=== PATIENT | female | born 1960 | race Caucasian/White ===

== ENCOUNTER 2021-09-26 01:10 | Outpatient (CLI) | payer BC, SELFPAY ==
[2021-09-26 10:31] LABS: Source Nasal/Nares
[2021-09-26 14:22] LABS: COVID-19 PCR Negative (Negative)
== END 2021-09-26 01:11 | disposition home or self-care (01) ==
LOC: LBO 01:10
PROVIDERS: Visit Provider Student in an Organized Health Care Education/Training Program
DX: Z20.822 Contact with and (suspected) exposure to COVID-19 (principal); Z01.818 Encounter for other preprocedural examination
CPT/HCPCS: 87635

== ENCOUNTER 2021-09-28 10:57 | Day surgery (SDC) | payer BC, SELFPAY ==
[2021-09-28] VITALS (9 sets, daily range): BP systolic 92–123; BP diastolic 55–96; PULSE 56–96; RESP 11–18; TEMP 36.2–36.6; O2SAT 94–98; BMI 41.6
[2021-09-28] MEDS: Acetaminophen 500 MG TAB 1000 MG PO (11:26)
[2021-09-28] MEDS: Celecoxib 200 MG CAP 400 MG PO (11:26)
[2021-09-28] MEDS: Lactated Ringers 1,000 ML 80 ML IV (11:36)
--- NOTE | 2021-09-28 12:08 | PDOC.DSDIS_ITS ---
Discharge Plan Disposition Patient Disposition: HOME Condition: Good Discharge Details Reason For Visit: Hemorrhagic prepatellar bursitis of right knee Attending Provider: Jean-Claude Mendes Home Meds and New Rx's Prescriptions: New acetaminophen 500 mg tablet 1,000 mg PO Q8H PRN Qty: 90 0RF Rx Instructions: Take two tablets up to every 8 hours as needed for pain hydrocodone-acetaminophen 5-325 mg tablet 1 tab PO Q6H PRN (Reason: severe pain) Qty: 6 0RF Rx Instructions: Take one tablet up to every 6 hours as needed for severe postoperative pain ibuprofen 600 mg tablet 600 mg PO TID PRN (Reason: pain) Qty: 60 0RF Continued lisinopril 20 mg tablet 20 mg PO DAILY 0RF Discharge Instructions Additional Instructions: Bursa Excision Discharge Instructions Activity: You may ambulate as tolerated. You may move your knee, ankle and toes as needed. Dressing: The dressing against your skin, Mepilex, should stay in place until your follow-up appointment. Please keep MICHAEL wrap in place - if it unravels you may re-wrap. you should call and notify the office. You may rewrap or overwrap until the follow-up. Medications: - You should take Tylenol and Ibuprofen around the clock for the first days- weeks. This will cover baseline pain control. - You have been prescribed a stronger medication, Hydrocodone, if needed. If this is necessary, and you need a refill, please call the office at [phone]. Stand Alone Forms: Anesthesia Discharge InstCourtney Ortiz (DSU) Referrals: Jean-Claude Mendes MD [ [facility] STAFF PHYSICIAN] - Activity:: Elevate Remove Dressings/Wound Care:: Do Not Remove Shower/Bathe:: Cover Diet:: As Tolerated Discharge Orders Discharge Orders: Discharge Order (Routine); Ordered 09/28/21 Ordered By: Libby Graham
--- NOTE | 2021-09-28 12:19 | W.ANESPRE ---
General Info Date of Service Date Performed: 09/28/21 Height: 5 ft 6 in Weight: 117 kg Body Mass Index (BMI): 41.6 Surgical Procedure: Operation Date: 09/28/21 12:40 Proposed Procedure Side Surgeon p Excision Prepatellar Bursectomy Right Jean-Claude Mendes MD Actual Procedure Side Surgeon p Excision Prepatellar Bursectomy Right Jean-Claude Mendes MD Meds Allergies and Home Medications Allergies Allergy/AdvReac Type Severity Reaction Status Date / Time No Known Allergies Allergy Verified 09/28/21 11:23 Home Medication Medication Instructions Recorded lisinopril 20 mg tablet 20 mg PO DAILY 07/13/21 acetaminophen 500 mg tablet 1,000 mg PO Q8H PRN #90 tab 09/28/21 hydrocodone 5 mg-acetaminophen 325 1 tab PO Q6H PRN #6 tab 09/28/21 mg tablet ibuprofen 600 mg tablet 600 mg PO TID PRN #60 tab 09/28/21 Current Visit Medications: Current Medications Generic Name Dose Route Start Last Admin Trade Name Freq PRN Reason Stop Dose Admin Acetaminophen 1,000 mg 09/28/21 06:00 09/28/21 11:26 Acetaminophen 500 Mg Tab PO 09/28/21 16:00 1,000 mg PREOP AMANDA Administration Acetaminophen 650 mg 09/28/21 12:07 Acetaminophen 325 Mg Tab PO Q4H PRN PRN Hydrocodone Bitart/Acetaminophen 0 tab 09/28/21 12:07 Hydrocodone 5/Acetaminophen 325 Tab PO Q3H PRN PRN Pain Celecoxib 400 mg 09/28/21 06:00 09/28/21 11:26 Celecoxib 200 Mg Cap PO 09/28/21 16:00 400 mg PREOP AMANDA Administration Ringer's Solution 1,000 mls @ 80 mls/hr 09/28/21 06:00 09/28/21 11:36 IV 10/23/21 23:59 80 mls/hr INFUSION AMANDA Administration Cefazolin Sodium 3 gm in 100 mls @ 200 mls/hr 09/28/21 06:00 Ancef Premix IVPB 09/28/21 16:00 PREOP AMANDA IV Miscellaneous Supplies 1 each 09/28/21 06:00 Iv Access IV 10/23/21 23:59 DIRECTED AMANDA Sodium Chloride 0 ml 09/28/21 06:00 Normal Saline Flush 10 Ml Syr IV 10/23/21 23:59 PRN PRN Sodium Chloride 0 ml 09/28/21 06:00 Normal Saline 10 Ml Vial IJ 10/23/21 23:59 DIRECTED PRN Sterile Water 0 ml 09/28/21 06:00 Water,Injection,Sterile 10 Ml Vial IJ 10/23/21 23:59 DIRECTED PRN PFSH Active Problems Active Problems: Problem Status Onset Code Osteoarthritis of right knee M17.11 Hemorrhagic prepatellar bursitis of right knee M70.41 Medical History Medical History HTN (hypertension) Melanoma Medical History Comments:: pt. stated it took her longer than normal to wake up Surgical History Surgical History (Updated 09/28/21 @ 11:25 by Mary Jo Matthews RN) Hx of melanoma excision Tobacco Smoking/Tobacco Use Status: Never Alcohol Alcohol Intake: never Substance Use Substance use: Never Substance use type: does not use Vital Signs and Lab Results Vital Signs Most Recent Vital Signs in EMR: Most Recent Vital Signs Temp Pulse Resp BP Pulse Ox 36.5 C 96 H 17 122/83 97 09/28/21 11:09 09/28/21 11:09 09/28/21 11:09 09/28/21 11:09 09/28/21 11:09 Lab Results Blood Type / Crossmatch: No Data to Display Complete Blood Count: No Data to Display Complete Metabolic Panel: No Data to Display Liver Function Panel: No Data to Display Coagulation Panel: No Data to Display Cardiac Panel: No Data to Display Arterial Blood Gas: No Data to Display Venous Blood Gas: No Data to Display Pancreas Panel: No Data to Display Thyroid Panel: No Data to Display Infectious Disease: Coronavirus (COVID-19)(PCR) Negative (Negative) 09/26/21 09:12 09/26/21 Coronavirus 2019 Source Nasal/Nares 09/26/21 09:12 09/26/21 Blood Cultures: No Data to Display Toxicology Panel: No Data to Display Anesthesia Assessment and Plan Anesthesia History Personal History: No History of Anesthesia Complications Family History: No Family History of Anesthesia Complications Exercise Tolerance Exercise Tolerance: Metabolic Equivalents>4 Pertinent Negatives Pertinent Negatives: No Symptoms of GERD, No Major Cardiovascular Symptoms or Complaints, No Major Pulmonary Symptoms or Complaints and No History of CVA/TIA Cardiac & Pulmonary Exam Cardiac Exam: Normal S1/S2 Heart Sounds Pulmonary Exam: Clear Bilateral Breath Sounds Implantable Cardiac Device Does patient have a Pacemaker or an ICD?: No Airway Exam Known Difficult Airway: No Mallampati Class: 2 Mouth Opening: Normal (> 3cm) Thyromental Distance: Greater than 3 cm Neck Range of Motion: Full ROM Neck Circumference: Normal Teeth Condition: Normal Dentition ASA Classification ASA Score: ASA 3 Emergency Case?: No NPO Status NPO Status: NPO Clears >2 hours, Solids >8 hours Anesthesia Plan Resuscitation Status: Full Code Anesthesia Technique: General Anesthesia Airway Planned: LMA Pain Management: Surgeon and patient request nerve block (Consented for rescue Adductor canal ) Monitors Used: Standard Monitors
[2021-09-28] MEDS: Bupivacaine 0.25% Pres-Free 10 ML VIAL (12:47)
[2021-09-28] MEDS: Ketorolac 15 MG/ML VIAL IVP (13:53)
[2021-09-28] MEDS: Normal Saline Flush 10 ML SYR IV (13:54)
[2021-09-28] MEDS: HYDROmorphone 2 MG/ML VIAL IVP (14:07)
[2021-09-28] MEDS: Acetaminophen 325 MG TAB 650 MG PO (14:39)
--- NOTE | 2021-09-28 14:53 | W.ANESPOSTOP ---
Postoperative Evaluation Date, Time and Location Date Performed: 09/28/21 Time Performed: 14:24 Patient Location: Day Surgery Unit Vital Signs Most Recent Imported Vital Signs: Most Recent Vital Signs Temp Pulse Resp BP Pulse Ox 36.2 C L 66 17 116/96 H 94 09/28/21 14:24 09/28/21 14:24 09/28/21 14:24 09/28/21 14:24 09/28/21 14:24 Pain Score Most Recent Pain Score: Most Recent Pain Score Pain Level 4 09/28/21 14:24 Assessment Mental Status: Awake (Alert & Oriented to Patient Baseline) Airway and Respiratory Function: Patent airway with normal (patient baseline) respiratory exam Cardiovascular Function: Hemodynamically Stable Hydration Status: Adequately Hydrated Nausea & Vomiting: No Nausea or Vomiting Pain: Pain is tolerable per patient Peripheral Nerve Block: Patient did not receive a nerve block
--- NOTE | 2021-09-28 20:43 | ROE_ITS ---
Date of service: 09/28/21 Time of Service: 13:15 Operative Note Operative Note DATE OF PROCEDURE: 09/28/21 PRE-OP DIAGNOSIS: Right Traumatic Prepatellar Bursitis PROCEDURE: Excision of Right Prepatellar Bursa with Hematoma Evacuation SURGEON: Jean-Claude Mendes [employer]IOR [employer] DEVELOPER: Libby Graham ANESTHESIA TYPE: General LMA/ETT Refer to Anesthesia Record ESTIMATED BLOOD LOSS: 25 TOURNIQUET TIME: 0 COMPLICATIONS: None Patient was transported to: PACU Patient's condition: stable Indications: Vee is a 61-year-old who had a fall onto her right knee. She had immediate swelling and pain. She tried to treat this nonoperatively but continues to have fullness and swelling about the anterior knee which is presumed to be coagulated hematoma. It is caused pressure to the skin difficulty with flexion and therefore I recommended a prepatellar bursectomy with evacuation of the hematoma. I discussed the risk of the procedure to include bleeding, infection, pain, stiffness, recurrence, skin healing difficulties, need for repeat procedures. Despite these risk, she elects to proceed. Findings: There was a large congealed hematoma in the prepatellar space with only a very small amount of liquid component. This hematoma extended throughout the entire prepatellar bursa. It was evacuated and the bursa was also removed. Procedure Description: Vee was greeted in the preoperative holding area. Her identity was confirmed the correct side was identified and marked. The consent was reviewed the patient and signed. History and physical was updated. Jenn was then taken to the operating room and placed in the supine position. All bony prominences were well-padded. A general anesthetic was administered. Prophylactic antibiotics in the form of cefazolin were administered. The right leg was prepped ChloraPrep and draped in the standard fashion. Timeouts performed for safe surgery. A midline incision was then made overlying the anterior portion of the knee. Once to the skin subtenons tissue there is an immediate guevara of liquid blood type material. After this was removed discontinuation of the incision showed a dense congealed hematoma in the prepatellar space. This was removed manually as well as with the use of a rongeur. Once the bulk of this hematoma was removed there is noted be some hemorrhagic and necrotic changes to the rectal tissue. Using a rongeur as well as cautery and a Tate to remove the bursal tissue in its entirety. Thorough irrigation was utilized along this process to ensure that we have removed all necessary components of the bursa. I did make sure to try to minimize any thinning of the subcutaneous tissue underlying the anterior skin. Any major bleeding was controlled with electrocautery. Once again, the wound was thoroughly irrigated and there is no remnant hematoma nor necrotic appearing bursal tissue. The deep tissue was then reapproximated with a 3-0 Vicryl. The skin was closed with a running 4-0 Monocryl subcuticular fashion. There is then reinforced with skin affix skin glue followed by Mepilex silver dressing. A pressure type dressing was applied with folded ABDs and Rober wrap overlying the anterior knee to provide some compression against the now evacuated hematoma space. At the end of the case all counts were correct. There was no complications. Vee was transferred back to the PACU in a stable condition.
== END 2021-09-28 15:10 | disposition home or self-care (01) ==
PROVIDERS: Visit Provider Student in an Organized Health Care Education/Training Program
PROC: (CPT 27345; principal; 2021-09-28 12:30)
DX: S80.01XA Contusion of right knee, initial encounter (principal); W19.XXXA Unspecified fall, initial encounter; M70.41 Prepatellar bursitis, right knee; M17.11 Unilateral primary osteoarthritis, right knee; I10 Essential (primary) hypertension
CPT/HCPCS: 27340; 27301; J1100; J1885; J2405; J3010

== ENCOUNTER 2023-06-16 15:44 | Outpatient (CLI) | payer MEDICAID, SELFPAY ==
--- NOTE | 2023-06-16 10:30 | DI.RAD_ITS ---
Exam(s) XR STANDING ALIGNMENT XR KNEE RT 1V EXAM: XR STANDING ALIGNMENT and XR knee RT 1 V CLINICAL HISTORY: TKR planning. TECHNIQUE: 2D digital imaging was performed. Five images were obtained. COMPARISON: DX Knee RT from 07/05/2021 FINDINGS: BONES: Mild axial narrowing of the hips bilaterally. Marked degenerative changes are seen in the rig ht knee with joint space narrowing and osteophytes predominantly involving the medial femoral tibial and patellofemoral joint. No evidence of a joint effusion in the right knee. There is moderate join t space narrowing and spurring seen in the medial femoral tibial joint of the left knee. The ankles are well maintained.There is no significant leg length discrepancy. SOFT TISSUE: Normal. IMPRESSION: Marked arthrosis of the right knee and moderate arthrosis of the left knee. DATA REPOSITORY: RADIATION DOSE DELIVERED:
== END 2023-06-16 15:45 | disposition home or self-care (01) ==
LOC: DIORS 15:44
PROVIDERS: PCP Nurse Practitioner Primary Care; Visit Provider Physician Assistant
DX: M17.12 Unilateral primary osteoarthritis, left knee (principal)
CPT/HCPCS: 73560; 77073

== ENCOUNTER 2023-08-11 05:24 | Outpatient (CLI) | payer MEDICAID, SELFPAY ==
[2023-08-11 12:07] LABS: HCT 44.6 % (36.0-46.0); HGB 14.4 g/dL (11.2-15.7); MCH 28.8 pg (27.0-33.0); MCHC 32.3 % (32.0-36.0); MCV 89 fL (80-95); MPV 9.6 fL (8.0-11.0); Platelet Count 365 10^3/uL (130-400); RDW 13.6 % (11.7-14.6); RDW-SD 44.3 fL; WBC 9.68 10^3/uL (4.4-10.8)
[2023-08-11 12:37] LABS: BUN 12 mg/dL (7-18); CREATININE 0.8 mg/dL (0.55-1.02); Calcium 9.6 mg/dL (8.5-10.1); Chloride 105 mmol/L (98-107); Estimated GFR 82.23 (mL/min/1.73m2); Glucose 106 mg/dL (74-106); Potassium 4.1 mmol/L (3.5-5.1); Sodium 142 mmol/L (136-145)
== END 2023-08-11 05:25 | disposition home or self-care (01) ==
LOC: LBO 05:24
PROVIDERS: PCP Nurse Practitioner Primary Care; Visit Provider Student in an Organized Health Care Education/Training Program
DX: M17.11 Unilateral primary osteoarthritis, right knee (principal); Z01.818 Encounter for other preprocedural examination
CPT/HCPCS: 36415; 80048; 85027

== ENCOUNTER 2023-08-20 15:59 | Observation (INO) | payer MEDICAID, SELFPAY ==
[2023-08-20] VITALS (28 sets, daily range): BP systolic 111–161; BP diastolic 70–101; PULSE 60–89; RESP 13–23; TEMP 35.7–36.6; O2SAT 91–98; BMI 40.0
--- NOTE | 2023-08-20 06:41 | W.ANESPRE ---
General Info Date of Service Date Performed: 08/20/23 Height: 5 ft 6 in Weight: 112.491 kg Body Mass Index (BMI): 40.0 Surgical Procedure: Operation Date: 08/20/23 09:10 Proposed Procedure Side Surgeon p Knee Total Arthroplasty Right Jean-Claude Mendes MD Meds Allergies and Home Medications Allergies Allergy/AdvReac Type Severity Reaction Status Date / Time No Known Allergies Allergy Verified 08/20/23 08:41 Home Medication Medication Instructions Recorded lisinopril 20 mg tablet 20 mg PO DAILY 07/13/21 acetaminophen 500 mg tablet 1,000 mg (2 x 500 mg) PO TID #90 08/20/23 tabs aspirin 81 mg tablet,delayed 81 mg PO BID #60 tabs 08/20/23 release celecoxib 200 mg capsule 200 mg PO BID #60 caps 08/20/23 dexamethasone 4 mg tablet 4 mg PO DAILY #2 tabs 08/20/23 gabapentin 300 mg capsule 300 mg PO QHS #14 caps 08/20/23 oxycodone 5 mg tablet 5 mg PO Q4H PRN pain #20 tabs 08/20/23 pantoprazole 40 mg tablet,delayed 40 mg PO DAILY #30 tabs 08/20/23 release Current Visit Medications: Current Medications Generic Name Dose Route Start Last Admin Trade Name Freq PRN Reason Stop Dose Admin Acetaminophen 1,000 mg 08/21/23 06:00 Acetaminophen 500 Mg Tab PO 09/20/23 05:59 PREOP AMANDA Celecoxib 400 mg 08/21/23 06:00 Celecoxib 200 Mg Cap PO 09/20/23 05:59 PREOP AMANDA Gabapentin 300 mg 08/21/23 06:00 Gabapentin 300 Mg Cap PO 09/20/23 05:59 PREOP AMANDA Ringer's Solution 1,000 mls @ 80 mls/hr 08/20/23 06:00 IV 08/20/23 23:59 INFUSION AMANDA Cefazolin Sodium 3,000 mg/ 100 mls @ 200 mls/hr 08/20/23 06:00 Sodium Chloride IVPB 08/20/23 23:59 PREOP AMANDA Tranexamic Acid/Sodium Chloride 1,000 mg in 100 mls @ 600 mls/hr 08/21/23 06:00 IVPB 09/20/23 05:59 PREOP AMANDA IV Miscellaneous Supplies 1 each 08/20/23 06:00 Iv Access IV 08/20/23 23:59 DIRECTED AMANDA Sodium Chloride 0 ml 08/20/23 06:00 Normal Saline Flush 10 Ml Syr IV 08/20/23 23:59 PRN PRN Sodium Chloride 0 ml 08/20/23 06:00 Normal Saline 10 Ml Vial IJ 08/20/23 23:59 DIRECTED PRN Sterile Water 0 ml 08/20/23 06:00 Water,Injection,Sterile 10 Ml Vial IJ 08/20/23 23:59 DIRECTED PRN PFSH Active Problems Active Problems: Problem Status Onset Code Osteoarthritis of right knee M17.11 Medical History Medical History Melanoma HTN (hypertension) Medical History Comments:: pt. stated it took her longer than normal to wake up Surgical History Surgical History Hemorrhagic prepatellar bursitis of right knee Status postevacuation of hematoma DOS: 09/28/2021 Hx of melanoma excision Tobacco Smoking/Tobacco Use Status: Never Alcohol Alcohol Intake: never Substance Use Substance use: Never Substance use type: does not use Vital Signs and Lab Results Vital Signs Most Recent Vital Signs in EMR: Temp Pulse Resp BP Pulse Ox 36.5 C 82 16 130/95 H 96 08/20/23 08:38 08/20/23 08:38 08/20/23 08:38 08/20/23 08:38 08/20/23 08:38 Lab Results Blood Type / Crossmatch: No Data to Display Complete Blood Count: White Blood Count 9.68 10^3/uL (4.4-10.8) 08/11/23 11:40 Red Blood Count 5.00 10^6/uL (3.93-5.22) 08/11/23 11:40 Hemoglobin 14.4 g/dL (11.2-15.7) 08/11/23 11:40 Hematocrit 44.6 % (36.0-46.0) 08/11/23 11:40 Platelet Count 365 10^3/uL (130-400) 08/11/23 11:40 Complete Metabolic Panel: Sodium 142 mmol/L (136-145) 08/11/23 11:40 Potassium 4.1 mmol/L (3.5-5.1) 08/11/23 11:40 Chloride 105 mmol/L (98-107) 08/11/23 11:40 Carbon Dioxide 28.0 mmol/L (21.0-32.0) 08/11/23 11:40 BUN 12 mg/dL (7-18) 08/11/23 11:40 Creatinine 0.8 mg/dL (0.55-1.02) 08/11/23 11:40 Est GFR (CKD-EPI 2020) 82.23 (mL/min/1.73m2) 08/11/23 11:40 Calcium 9.6 mg/dL (8.5-10.1) 08/11/23 11:40 Glucose 106 mg/dL (74-106) 08/11/23 11:40 Liver Function Panel: No Data to Display Coagulation Panel: No Data to Display Cardiac Panel: No Data to Display Arterial Blood Gas: No Data to Display Venous Blood Gas: No Data to Display Pancreas Panel: No Data to Display Thyroid Panel: No Data to Display Infectious Disease: No Data to Display Blood Cultures: No Data to Display Toxicology Panel: No Data to Display Anesthesia Assessment and Plan Anesthesia History Personal History: No History of Anesthesia Complications Family History: No Family History of Anesthesia Complications Exercise Tolerance Exercise Tolerance: Metabolic Equivalents>4 Pertinent Negatives Pertinent Negatives: No Symptoms of GERD, No Major Pulmonary Symptoms or Complaints and No History of CVA/TIA Cardiac & Pulmonary Exam Cardiac Exam: Normal S1/S2 Heart Sounds Pulmonary Exam: Clear Bilateral Breath Sounds Implantable Cardiac Device Does patient have a Pacemaker or an ICD?: No Airway Exam Known Difficult Airway: No Mallampati Class: 2 Mouth Opening: Normal (> 3cm) Thyromental Distance: Greater than 3 cm Neck Range of Motion: Full ROM Neck Circumference: Normal Teeth Condition: Normal Dentition ASA Classification ASA Score: ASA 3 Emergency Case?: No NPO Status NPO Status: NPO Clears >2 hours, Solids >8 hours Anesthesia Plan Resuscitation Status: Full Code Anesthesia Technique: Spinal Anesthesia Airway Planned: Natural Airway Pain Management: Surgeon and patient request nerve block Monitors Used: Standard Monitors Preoperative Comments:: 63 yo female for TKA. Sig PMHx: HTN (lisinopril), never smoker. denies major. Previous Anes: - Knee cyst, LMA 4, prop, dexmed, no issues.
--- NOTE | 2023-08-20 07:21 | PDOC.DSDIS_ITS ---
Date of service: 08/20/23 Time of Service: 07:21 Discharge Plan Disposition Patient Disposition: Home Condition: Good Discharge Details Reason For Visit: R TKR Attending Provider: Jean-Claude Mendes Primary Care Provider: KIRK FARRELL Home Meds and New Rx's Prescriptions: New celecoxib 200 mg capsule 200 mg PO BID Qty: 60 0RF aspirin 81 mg tablet,delayed release (DR/EC) 81 mg PO BID Qty: 60 0RF acetaminophen 500 mg tablet 1,000 mg PO TID Qty: 90 3RF pantoprazole 40 mg tablet,delayed release (DR/EC) 40 mg PO DAILY Qty: 30 0RF dexamethasone 4 mg tablet 4 mg PO DAILY Qty: 2 0RF gabapentin 300 mg capsule 300 mg PO QHS Qty: 14 0RF oxycodone 5 mg tablet 5 mg PO Q4H MDD 6 tabs PRN (Reason: pain) Qty: 20 0RF Continued lisinopril 20 mg tablet 20 mg PO DAILY Discharge Instructions Additional Instructions: Total Knee Discharge Instructions Activity: The most important activity is to walk and to work on gentle motion (both flexion and extension). You should try to take short walks a few times a day. It is important that when resting you work on keeping the knee straight. Avoid putting a pillow behind the knee as this will encourage flexion. Work on range of motion exercises as provided by Physical Therapy. - Start outpatient physical therapy within 2 weeks. - You should wear the JESUS hose on both legs for 2 weeks. You may remove these at night. You may also use any compression sock in place of the JESUS hose. - Utilize [employer] to review exercises, see videos on exercises and obtain basic information pertaining to your surgery and your recovery. Dressing: Remove the Rober wrap by 2 days after your surgery and put on the JESUS stocking given to you from the hospital. Keep the surgical dressing (underneath the ROBER wrap) in place for at least one week. After the first week it may be removed and replaced with light gauze and tape or nothing. The wound and dressing may get wet after 3 days but avoid soaking the dressing or otherwise it will need to be changed. Many people prefer covering the dressing with cling wrap (saran wrap) to minimize it from getting soaked. If it gets wet, just pat dry. If it starts to peel off then it will need to be changed. Medications: - You should take Tylenol and anti-inflammatory Celebrex as your primary pain control medications. If the Celebrex is too expensive or not covered, please call the office for another alternative (Advil/Ibuprofen or Naproxen/Aleve) - You have been prescribed a stronger pain medication Oxycodone for breakthrough pain, take as needed as prescribed. - You have also been prescribed a stomach acid reduction agent Pantoprozole to help reduce stomach acid and reflux. - You have been prescribed Gabapentin to take at night for restlessness and nerve pain. - You will be taking Aspirin 81mg twice a day for DVT prevention unless instructed otherwise. - You have also been prescribed Decadron to take to control post-operative nausea and pain. You will start this tomorrow. - If you have constipation you should take Colace or Miralax (both [id number]). It takes most people 3-4 days to have a bowel movement. Follow-up: 2 weeks If you have any acute concerns or questions, please do not hesitate to contact the office at [phone]. You may contact Dr. Mendes with any questions after hours through the hospital at [phone] or on his cell phone at [phone]. Referrals: Jean-Claude Mendes MD [ [facility] STAFF PHYSICIAN] - Equipment/Supplies: Walker Activity:: Activity as Tolerated Shower/Bathe:: 72 hours Diet:: As Tolerated DS: Diagnosis Discharge Diagnosis (1) Osteoarthritis of right knee: Status: Acute
[2023-08-20] MEDS: Gabapentin 300 MG CAP PO ×2 (08:54→20:09)
[2023-08-20] MEDS: Acetaminophen 500 MG TAB 1000 MG PO (08:54)
[2023-08-20] MEDS: Celecoxib 200 MG CAP 400 MG PO (08:54)
[2023-08-20] MEDS: Lactated Ringers 1,000 ML 80 ML IV (09:19)
--- NOTE | 2023-08-20 09:53 | W.ANESNERVE ---
Nerve Block Single Injection Procedure Date and Time Date Performed: 08/20/23 Procedure Start: 08:36 Location Where Procedure Performed Procedure Location: Day Surgery Unit Reason Performed: Postoperative Analgesia Requesting Provider: Jean-Claude Mendes Timeout Performed Timeout Performed: Yes Monitoring Used ECG, Blood Pressure and SpO2 Sterility Sterility: Hand Hygiene, Surgical Cap, Surgical Mask, Sterile Gloves and Chlorhexidine Sedation Given During Procedure Sedation Given (Indicate Dose Given): Versed IV Dose:: 2 mg Patient Mental Status Patient Mental Status: Sedate with meaningful communication Nerve Block 1st Nerve Block: Laterality: Right Block Type: Adductor Canal Ultrasound Image Saved?: Yes Needle / Catheter Used: 100mm SonoPlex II Local Anesthetic Bolus (Indicate Dose Given): Lidocaine used for local infiltration of skin and Bupivacaine 0.25% Dose:: 10 mL Additives (Indicate Dose Given): None Ultrasound: Sterile probe cover and gel used Nerve Stimulator: Supplement to Ultrasound use and No twitch or parasthesia noted < 0.5 mA Paresthesia: None Procedure Tolerated: No Complications Procedure Outcome: Successful Performed By: Nirmal Quesada
[2023-08-20] MEDS: ceFAZolin 3,000 MG in Normal Saline 100 ML 200 MG IVPB (10:23)
[2023-08-20] MEDS: TRANEXAMIC ACID/SOD. CHL. 1,000 MG/100 ML BAG 600 MG IVPB (10:27)
--- NOTE | 2023-08-20 11:58 | W.PM.OP ---
Date of service: 08/20/23 Time of Service: 10:30 Operative Note Operative Note DATE OF PROCEDURE: 08/20/23 PRE-OP DIAGNOSIS: Right Knee Osteoarthritis POST-OP DIAGNOSIS: same PROCEDURE: Right Total Knee Replacement SURGEON: Jean-Claude Mendes FIELD ASSISTANT: Placido Penaloza ANESTHESIA TYPE: Spinal Refer to Anesthesia Record ESTIMATED BLOOD LOSS: 100 PATHOLOGY: none sent TOURNIQUET TIME: 0 COMPLICATIONS: None Patient was transported to: PACU Patient's condition: stable Implants: 1. Depuy Attune Cementless Cruciate Retaining Femoral Component, Size 5 2. Depuy Attune Cementless Fixed Bearing Tibial Component, Size 4 3. Depuy Attune 5x10 CR/FB Poly 4. Depuy Attune Patellar Component, Size 35 Indications: I have seen Vee in clinic for symptoms of knee arthritis, confirmed with radiographic findings. [NAME] has exhausted nonoperative methods and was having significant limitations in daily function and desired better function and less pain. I discussed the technical details of a knee replacement. I explained the risks of the procedure to include, but not limited to, bleeding, infection, pain, stiffness, fracture, damage to nerves and vessels, damage to muscles and tendons, loosening, need for repeat procedure, blood clot and cardiopulmonary demise. Despite these risks, [NAME] elected to proceed. Findings: There was significant signs of arthritis throughout the knee. Procedure Description: Vee was greeted in the preoperative holding area where the correct side was identified and marked. The consent was reviewed with the patient and signed. The history and physical was updated. All questions were answered. Preoperative medications were administered: Acetaminophen 1000mg, Celebrex 400mg, and Gabapentin 300mg. An adductor canal block was then administered by the anesthesia team in the DSU. Vee was taken back to the operating room. A spinal anesthestic was then administered. The patient was placed into the supine position on the operating room table. A nonsterile tourniquet was placed high onto the leg but only used for cementing. Posts were placed for positioning during the procedure. All bony prominences were well padded. Prophylactic antibiotics in the form of Cefazolin were administered. 1g of Tranxemic Acid was given intravenously within 30 minutes of incision. The right leg was then prepped with Chloraprep and draped in a standard fashion with impervious stockinette. A second prep with Chloraprep was performed prior to application of Iodine impregnated skin protection. A timeout to confirm correct identity, side and site, procedure, allergies, anesthesia, and medical concerns was performed. With the knee in some flexion, a midline incision was made overlying the knee. Full thickness skin flaps were raised once the extensor mechanism was encountered. These were raised medially and laterally. Any bleeding was controlled with electrocautery. Once the extensor mechanism was fully exposed, a medial parapatellar arthrotomy was performed in a flexed position. All bleeding from the arthrotomy and the geniculate arteries was coagulated. A medial subperiosteal peel was performed with electrocautery to the midcoronal plane. The fat pad was removed while keeping the patellar tendon protected. The anterior distal femur synovium was removed for later visualization. The ACL and PCL were resected and the anterior horn of the lateral meniscus was transected. The knee was then flexed with the patella everted. Using a step drill, and based on preoperative templating, the femoral canal was entered. This was done with a step drill without any difficulty. The intramedullary distal femoral cut guide was inserted, set to a 6 degree valgus cut and 9mm cut thickness. The distal femoral cut guide was then held in position and pinned. With the soft tissues protected, the distal cut was performed. This was passed over a few times to ensure a planar cut. I then turned attention to the tibia. The extramedullary guide was placed onto the leg. The distal aspect was slid medial to adjust for position of center of ankle and stay in line with shaft of the tibia. Approximately 3-5 degrees of posterior slope was kept in the proximal cutting guide. The center of the guide was aligned with the PCL. The stylus was used to assess cut thickness. The medial side, most involved side, was set for a 6mm cut, corresponding to 9mm laterally. This was then held in position and pinned into place with 2 additional pins and a cross pin for stability. The medial and lateral collateral ligaments were protected and the cut was performed. With this completed, it was assessed and noted to be of appropriate dimensions. The guide was removed. A spacer block was inserted and the knee was brought into extension. The 8mm spacer block provided full extension, without hyperextension and with stability of both the medial and lateral collateral ligaments was assessed. The pins from the femur and the tibia were then removed. The distal femur was then sized. The anterior stylus was placed onto the lateral ridge of the anterior femur. This indicated a size 5 femur. The external rotation of the guide was adjusted to 3 degrees to match the epicondylar axis, perpendicular to [place] line. The 4-in-1 cutting guide was the placed. The posterior medial femur cut was evaluated and appeared of good thickness. The spacer block was inserted underneath the cutting guide and stability was confirmed in 90 degrees of flexion. An yesi wing was used to confirm appropriate position of the anterior cut to avoid notching. This cutting guide was ensured to be flush on the cut surface and then pinned into place with headed pins. While protecting the soft tissues, quad tendon, and collateral ligaments, the anterior and posterior cuts were performed with a saw. The central two pins were removed and the posterior and anterior chamfers were cut next. The notch-cutting guide was placed. This was pinned to lateralize the femoral component as much as possible while keeping it flush on the cut surface. This was then pinned into position. A reciprocating saw was used to make the notch cut. A rasp smoothed the cut surfaces. The medial and lateral menisci were removed. A trial femoral component was then inserted, impacted down to the cut surfaces, and the lug holes were drilled. A provisional trial tibial component was placed and the knee was brought through range of motion. The polyethylene was trialed until there was good flexion and extension with excellent stability to the medial and lateral collaterals. The patella was tracking without thumbs. A size 10mm polyethylene component provided the best range of motion and stability with less than 2mm gapping with medial and lateral stress and full extension without significant hyperextension. The tibial cut surface was fully exposed. The tibia was then sized as a 4. The tibia had been previously marked during trialing to correspond to the center of the tibial component to help with rotation. The trial was aligned to this placido, approximately rotated to the medial 1/3rd of the tibial tubercle. The trial was pinned into place. The tibia was prepared with a reamer and a keel punch and lug holes. The knee was then brought into extension and the patella was measured as 26mm. Using the patellar clamp and cut guide, this was resected to a flat surface with at least 13mm of thickness remaining. The size 35 patella fit the best. This was oriented and then clamped into position. The lugs were drilled. The trial components were removed. The final components were opened on the back table. The periosteal and capsular tissues, especially posteriorly, around the knee were then systematically injected with a periarticular cocktail consisting of 246mg of Ropivacaine, 0.5mg of Epinephrine, 0.08mg of Clonidine, and 30mg of Ketorolac, diluted to 100cc. On the back table, with the implants opened, the cement was mixed. One batch of high viscosity cement was prepared with vacuum assistance. After the cement was ready a small amount was placed on the cut surface of the patella and the patellar button was clamped into position and held. While the cement was hardening, the cementless knee components were placed. Starting with the tibial component, the tibia was subluxed anteriorly and the lug holes of the component were lined up. The tibia was then impacted with an impactor and mallet until the tibial component was in contact with the tibia. The final polyethylene component was inserted. Then, the femoral component was inserted. The lug holes were aligned and the component was impacted into position. The knee was irrigated with Surgiphor Betadine solution. This was allowed to sit in the knee for 3 minutes and then it was irrigated out with saline. After the cement had finally cured, approximately 15min, the clamp was removed from the patella and the knee was taken through range of motion. The patella was tracking with a no-thumbs technique. The capsule was then reapproximated with a No. 1 Vicryl at multiple locations. The capsule was finally closed with a No. 2 Stratafix, barbed suture. The second dosing of 1g TXA was started. Deep tissues were then reapproximated with 0 Vicryl and 2-0 Vicryl. The skin was closed with a running 3-0 Monocryl in a subcuticular fashion. This was reinforced with skin glue. A Mepilex silver dressing was applied along with a gnsd-bu-fcped MICHAEL wrap. A CryoCuff was applied. Vee was transferred to the hospital bed without difficulty an suffering no apparent complication. Vee has a good prognosis. Physical therapy will start today and without restrictions, weight-bearing as tolerated. Aspirin 81mg BID will be used for DVT prophylaxis.
--- NOTE | 2023-08-20 12:47 | W.ANESPOSTOP ---
Postoperative Evaluation Date, Time and Location Date Performed: 08/20/23 Time Performed: 12:47 Patient Location: PACU Vital Signs Most Recent Imported Vital Signs: Most Recent Vital Signs Temp Pulse Resp BP Pulse Ox 36.5 C 70 14 116/75 96 08/20/23 12:21 08/20/23 12:31 08/20/23 12:31 08/20/23 12:31 08/20/23 12:31 Pain Score Most Recent Pain Score: Most Recent Pain Score Pain Level 0 08/20/23 12:31 Assessment Mental Status: Awake (Alert & Oriented to Patient Baseline) Airway and Respiratory Function: Patent airway with normal (patient baseline) respiratory exam Cardiovascular Function: Hemodynamically Stable Hydration Status: Adequately Hydrated Nausea & Vomiting: No Nausea or Vomiting Pain: Other (spinal still waning) Peripheral Nerve Block: Regional nerve block not resolved at time of post operative discharge
[2023-08-20] MEDS: oxyCODONE 5 MG TAB PO (13:44)
--- NOTE | 2023-08-20 14:00 | IN_ITS ---
PT Notes Visit Reasons: R TKR Physical Therapy Day Surgery Initial Evaluation Date: 08/20/2023 Referring Doctor: HI Archuleta PT Orders: PT CONSULT: S/p Ortho Surgery Precautions: WBAT on the right LE with AD. Patient Profile/Admitting Diagnosis: Vee is a 63-year-old female with degenerative joint disease of the right knee and status post right total knee arthroplasty on postoperative day 0. PMHX: Medical History (Updated 04/28/23 @ 10:14 by HI Archuleta) Melanoma HTN (hypertension) Surgical History (Updated 06/16/23 @ 10:50 by HI Archuleta) Hemorrhagic prepatellar bursitis of right knee Status postevacuation of hematoma DOS: 09/28/2021 Hx of melanoma excision Social History/Home Situation: Lives with in a private home with 2 steps to enter with no rails. Independent with all aspects of ADLs prior to surgery. Equipment Owned/DME: [facility], [facility] Subjective: Reported 3?4/10 pain on the right knee at rest and with movement. Reported fatigue on the right quad muscle that led to a mild right knee buckling but no loss of balance. Denied headache, chest pain, and lightheadedness throughout session. Needed to void urine at start of session. Objective: General Observation: MICHAEL wraps to right knee. Cryocuff to right knee. TDS to left leg and foot. Mental Status: A and O x 4 Pain: As above ROM: Right Lower Extremity: Hip flexion WFL. Hip abduction WFL. Knee flexion 20 degrees to 100 degrees. Knee extension -20 degrees. Ankle dorsiflexion WFL. Ankle plantarflexion WFL. Left Lower Extremity: Hip flexion WFL. Hip abduction WFL. Knee flexion WFL. Ankle dorsiflexion WFL. Ankle plantarflexion WFL. Strength: Right Lower Extremity: Hip flexors 4/5. Hip abductors 4/5. Knee flexors 3-/5. Knee extensors 3-/5. Ankle dorsiflexors 4-/5. Ankle plantarflexors 5/5. Left Lower Extremity:Hip flexors 5/5. Hip abductors 5/5. Knee flexors 5/5. Knee extensors 5/5. Ankle dorsiflexors 5/5. Ankle plantarflexors 5/5. Sensation: Intact as to pain and light pressure in BLE Bed Mobility/Transfers: Minimal cueing provided for use of B hands as needed for support, movement sequence, AD management, and posture to reduce fall risk and minimize pain report Supine to sit standby assist Sit to stand contact-guard assist Stand to sit standby assist Bed to chair standby assist Gait: Facilitated safe and correct performance of level surface ambulation covering a distance of 150 feet using front wheeled walker with step through reciprocal heel-toe gait pattern using front wheeled walker with contact-guard assist with minimal verbal cueing provided for safe gait pattern, AD management, and posture to fall risk and minimize pain report. Patient demonstrated with mild buckling on the right knee but no loss of balance due to fatigue of the right quad muscle at end of activity. Stairs: Guided patient with safe and correct negotiation of 3 x 4 inch steps and 2 x 6 inch steps while holding onto bilateral rails with step to gait pattern requiring minimal verbal cueing for limb movement sequence, hand placement, and posture to reduce fall risk and minimize pain report. No buckling noted on right LE throughout activity. Balance: Static Sitting: Normal Dynamic Sitting: Normal Static Standing: Fair Dynamic Standing: Fair Special Tests: Mobility Limitations Standardized Measure [facility] AM-PAC 6 clicks Basic Mobility Inpatient Short Form: Raw Score: 22 CMS Score: 21% deficit Informed Consent/Education: Patient instructed in purpose of PT consult. Packet containing TKA exercise protocol has been given to patient. Education and training on initial set of exercises that can be done at home have been completed with patient. Trained patient with correct performance of exercises below to maximize motor control, joint flexibility, soft tissue extensibility of the R knee musculature: Access Code: [email or web address] URL: [email or web address] Date: 08/20/2023 Prepared by: Cally Robin Exercises - Supine Quad Set - 1 x daily - 7 x weekly - 1 sets - 10 reps - 5 hold - Supine Heel Slide - 1 x daily - 7 x weekly - 1 sets - 10 reps - 5 hold - Supine Ankle Pumps - 1 x daily - 7 x weekly - 1 sets - 10 reps - 5 hold - Small Range Straight Leg Raise - 1 x daily - 7 x weekly - 1 sets - 10 reps - 5 hold - Seated March - 1 x daily - 7 x weekly - 1 sets - 10 reps - 5 hold Assessment: Patient requires use of walker for mobility performance to maximize independence and reduce fall risk. Single incident of a mild right knee buckling due to fatigue of right quads after walking activity but no loss of balance. Patient presents with clinical signs and symptoms consistent with current/admitting diagnoses that have resulted to mobility limitations, gait instability, generalized weakness, and impairment of motor control as demonstrated by the following impairment level findings: 1. Decreased strength to R knee major muscle groups 2. Impaired standing balance 3. Limitation of joint range of motion in R knee Impairments are contributing to the following functional limitations: 1. Inability to safely ambulate without assistive device 2. Increase completion time for mobility ADL performance 3. Increased fall risk Patient is assessed as a [id number] moderate complexity based on the following: History: 63-year-old female with impairment level findings, functional limitations, and past medical history as indicated above Examination: Demonstrable impairment in strength, balance, and mobility level with underlying impairments and functional limitations as documented above Presentation: Evolving Decision Makin moderate complexity Goals: N/A. PT evaluation and 1-2 treatment sessions only for functional mobility training using recommended AD and for HEP instruction. Plan of Care/Treatment Plan: N/A. PT evaluation and 1-2 treatment session only for functional mobility training using recommended AD and for HEP instruction. DISCHARGE RECOMMENDATIONS: Home when medically cleared by orthopedic surgeon. Recommend outpatient PT services in order to optimize functional mobility outcomes and facilitate return to independent community ambulation without an assistive device. TREATMENT CODE/TIME: 9716 2 x 20 minutes for 1 unit, 9753 0 x 20 minutes for 1 unit (14:00-14:40) Thank you for the opportunity to participate in the care of this patient. Please sign an return this page within 30 days if you agree with the above POC. Thank you! Physician Signature Date [facility] Thank you for the opportunity to participate in the care of this patient. Cally Robin PT, DPT, CLT [facility] [place], [place]
[2023-08-20] MEDS: Tranexamic Acid 650 MG TAB 1300 MG PO ×2 (14:47→20:08)
[2023-08-20] MEDS: Normal Saline Flush 10 ML SYR IV (15:28)
[2023-08-20] MEDS: Ondansetron 4 MG/2 ML VIAL IVP (15:29)
[2023-08-20] MEDS: ceFAZolin 1 GM/50 ML BAG IVPB (17:49)
[2023-08-20] MEDS: Mylanta Suspension 30 ML CUP PO (18:05)
--- NOTE | 2023-08-20 18:16 | NUR.NOTE ---
Gave pt Leanne for c/o indigestions, will monitor. No current n/v. Nursing Note:
[2023-08-20] MEDS: Aspirin E.C. 81 MG TABEC PO (20:08)
[2023-08-20] MEDS: Celecoxib 200 MG CAP PO (20:08)
[2023-08-21] VITALS (7 sets, daily range): BP systolic 94–128; BP diastolic 59–85; PULSE 72–92; RESP 17–18; TEMP 36.3–36.5; O2SAT 94–96
[2023-08-21] MEDS: ceFAZolin 1 GM/50 ML BAG IVPB ×2 (01:14→10:06)
--- NOTE | 2023-08-21 07:49 | W.PM.DS.N ---
Date of service: 08/21/23 Time of Service: 07:53 DS: Diagnosis Discharge Diagnosis (1) Osteoarthritis of right knee: Status: Acute Discharge Plan Disposition Patient Disposition: Home Condition: Good Discharge Details Reason For Visit: R TKR Admit Date/Time: 08/20/23 15:59 Admit Provider: Jean-Claude Mendes Attending Provider: Jean-Claude Mendes Primary Care Provider: KIRK FARRELL Hospital Course Hospital Course: Patient was admitted to the medical/surgical floor following the procedure for nausea. The surgery was tolerated well without any notable medical, surgical, or anesthetic complications. Mobilization began postoperatively. She was voiding spontaneously. Vitals were stable. Physical therapy worked with the patient and was cleared for discharge home. She did have dropping oxygenation levels when resting or sleeping but easily adjusted when she was alert and awake. Pain was controlled on oral regimen. Home Meds and New Rx's Prescriptions: New celecoxib 200 mg capsule 200 mg PO BID Qty: 60 0RF aspirin 81 mg tablet,delayed release (DR/EC) 81 mg PO BID Qty: 60 0RF acetaminophen 500 mg tablet 1,000 mg PO TID Qty: 90 3RF pantoprazole 40 mg tablet,delayed release (DR/EC) 40 mg PO DAILY Qty: 30 0RF dexamethasone 4 mg tablet 4 mg PO DAILY Qty: 2 0RF gabapentin 300 mg capsule 300 mg PO QHS Qty: 14 0RF oxycodone 5 mg tablet 5 mg PO Q4H MDD 6 tabs PRN (Reason: pain) Qty: 20 0RF Continued lisinopril 20 mg tablet 20 mg PO DAILY Discharge Instructions Additional Instructions: Total Knee Discharge Instructions Activity: The most important activity is to walk and to work on gentle motion (both flexion and extension). You should try to take short walks a few times a day. It is important that when resting you work on keeping the knee straight. Avoid putting a pillow behind the knee as this will encourage flexion. Work on range of motion exercises as provided by Physical Therapy. - Start outpatient physical therapy within 2 weeks. - You should wear the JESUS hose on both legs for 2 weeks. You may remove these at night. You may also use any compression sock in place of the JESUS hose. - Utilize [employer] to review exercises, see videos on exercises and obtain basic information pertaining to your surgery and your recovery. Dressing: Remove the Rober wrap by 2 days after your surgery and put on the JESUS stocking given to you from the hospital. Keep the surgical dressing (underneath the ROBER wrap) in place for at least one week. After the first week it may be removed and replaced with light gauze and tape or nothing. The wound and dressing may get wet after 3 days but avoid soaking the dressing or otherwise it will need to be changed. Many people prefer covering the dressing with cling wrap (saran wrap) to minimize it from getting soaked. If it gets wet, just pat dry. If it starts to peel off then it will need to be changed. Medications: - You should take Tylenol and anti-inflammatory Celebrex as your primary pain control medications. If the Celebrex is too expensive or not covered, please call the office for another alternative (Advil/Ibuprofen or Naproxen/Aleve) - You have been prescribed a stronger pain medication Oxycodone for breakthrough pain, take as needed as prescribed. - You have also been prescribed a stomach acid reduction agent Pantoprozole to help reduce stomach acid and reflux. - You have been prescribed Gabapentin to take at night for restlessness and nerve pain. - You will be taking Aspirin 81mg twice a day for DVT prevention unless instructed otherwise. - You have also been prescribed Decadron to take to control post-operative nausea and pain. You will start this tomorrow. - If you have constipation you should take Colace or Miralax (both [id number]). It takes most people 3-4 days to have a bowel movement. Follow-up: 2 weeks If you have any acute concerns or questions, please do not hesitate to contact the office at [phone]. You may contact Dr. Mendes with any questions after hours through the hospital at [phone] or on his cell phone at [phone]. Stand Alone Forms: Anesthesia Discharge Inst., [place].Nerve Block Instructions, Courtney Montanez ([facility]) Referrals: Jean-Claude Mendes MD [ [facility] STAFF PHYSICIAN] - 09/04/23 11:00 am Activity:: Activity as Tolerated Equipment/Supplies:: Walker Diet:: As Tolerated Discharge Orders Discharge Orders: Discharge Order (Routine); Ordered 08/21/23 Ordered By: Jean-Claude Mendes DS: Summary Time Spent with Patient providing and/or coordinating discharge services: Less than 30 minutes Status at Discharge Functional status at discharge: uses cane/walker Overall status at discharge: patient is progressing back to baseline Mental Status: mental status grossly normal Speech and Movement: speech and movement normal Mood: congruent mood Affect: normal affect Quality:SDOH Health Related Social Needs: No Data to Display Exam Narrative Exam Narrative: Sleeping in the bed. Oxygenation at 92%. NAD. AAOx3. RLE dressing c/d/i. Weakly able to SLR. +ADF/APF/EHL/FHL. SILT DP/SP/Tib. Palpable DP/PT. Psych Mental Status: mental status grossly normal Speech and Movement: speech and movement normal Mood: congruent mood Affect: normal affect DS: Data Vitals/I&O Vitals and I&O: Vital Signs Temperature 36.3 C L 08/21/23 03:30 Temperature Source Tympanic 08/21/23 03:30 Pulse 81 08/21/23 03:30 Pulse Rhythm Regular 08/21/23 02:23 Pulse 75 08/20/23 10:11 Respiratory Rate 17 08/21/23 03:30 Respiratory Effort Normal, Non-Labored 08/21/23 02:23 Respiratory Depth Normal 08/21/23 02:23 Respiratory Pattern Normal 08/21/23 02:23 Blood Pressure 103/77 08/21/23 03:30 Blood Pressure Mean 99 08/20/23 10:11 Blood Pressure Position Supine 08/20/23 10:00 Pulse Oximetry 94 08/21/23 03:30 Respiratory End-tidal CO2 38 08/20/23 13:10 Oxygen Delivery Method Nasal Cannula 08/21/23 03:30 Oxygen Flow Rate 1 08/21/23 03:30 Pain Level 3 08/20/23 23:25 Comment Patient denies tinnitus and metallic taste in mouth pre-procedure and post-procedure 08/20/23 09:01 Intake & Output 08/20/23 08/20/23 08/21/23 11:59 23:59 11:59 Intake Total 500 / 1335 835 / 1335 50 / 50 Output Total 100 / 320 220 / 320 Balance 400 / 1015 615 / 1015 50 / 50 Weight 112 kg 114.305 kg Intake: IV 500 / 975 475 / 975 50 / 50 Oral 360 / 360 Output: Emesis 220 / 220 Estimated Blood Loss 100 / 100 Other: Urine Color Yellow Yellow Urine Appearance Clear Clear Urine Odor None None Comment per patient report per patient report pt flushed toilet by herself. Emesis Description Clear/Water Voiding Methods Toilet Toilet Toilet PFSH All Active Problems Osteoarthritis of right knee (Acute) Steroid injection: 04/28/2023 Medical History Melanoma HTN (hypertension) Surgical History Hemorrhagic prepatellar bursitis of right knee Status postevacuation of hematoma DOS: 09/28/2021 Hx of melanoma excision Social History Smoking/Tobacco Use Status: Never Smoking risk assessment performed?: Yes Alcohol Intake: never Drug use: Never Substance use type: does not use Housing: house Current gender identity: female Do you feel safe at home: Yes Do you feel safe in your relationship?: Yes Time Spent with Patient Time Spent with Patient: <45 minutes Time was spent: preparing to see the patient(eg.review tests), ordering medications,tests, procedures, indepentently interpreting results, counseling the patient and care coordination
[2023-08-21] MEDS: Aspirin E.C. 81 MG TABEC PO (08:08)
[2023-08-21] MEDS: Dexamethasone 4 MG TAB PO (08:08)
[2023-08-21] MEDS: Celecoxib 200 MG CAP PO (08:08)
[2023-08-21] MEDS: oxyCODONE 5 MG TAB PO (08:12)
--- NOTE | 2023-08-21 08:57 | PTTR_ITS ---
PT Notes Visit Reasons: R TKR Physical Therapy Inpatient Treatment Note Date: 08/21/2023 Referring Doctor: HI Archuleta PT Orders: PT CONSULT: S/P Ortho Surgery Precautions: WBAT on the right LE with AD. Patient Profile/Admitting Diagnosis: Vee is a 63-year-old female with degenerative joint disease of the right knee and status post right total knee arthroplasty on postoperative day 0. Subjective: Reported 5/10 pain on the right knee at rest and with movement. Woozy. After walking to door, stated that she felt like she was going to pass out. Nurse updated right away. Objective: General Observation: Mepilex Ag oer surgical incision. TEDS to left leg and foot. Mental Status: A and O x 4 Pain: BP before the short walk= 124/77 mmHg, O2 Sat 91% on RA, HR 73 bpm Bed Mobility/Transfers: Minimal cueing provided for use of B hands as needed for support, movement sequence, AD management, and posture to reduce fall risk and minimize pain report Sit to stand contact-guard assist Stand to sit standby assist Bed to chair standby assist Gait: Facilitated safe and correct performance of level surface ambulation covering a distance 20 feet using front-wheeled walker with step through reciprocal heel- toe gait pattern using front wheeled walker with contact-guard assist with minimal verbal cueing provided for safe gait pattern, AD management, and posture to fall risk and minimize pain report. patient verbalized that she felt like she was going to pass out so she was asked to sit on wheelchair right away. GERTRUDIS Lam asked to update nurse right away who had a difficult found 70s/40s on the machine; decided to measure patient's manula BP but had a difficult time t aking it. Patient was asssisted to lie back down onto bed with help of 3 nursing staff. Stairs: Deferred Balance: Static Sitting: Normal Dynamic Sitting: Normal Static Standing: Fair Dynamic Standing: Fair Assessment: Patient with hypotensive and near syncopal episode. Per nurse, patient was given oxycodone about an hour ago. Deferred any further intervention. Will plan on reassessing mobility level of patient later this afternoon. Goals: Goals X1 week 1. Supine-Sit independent 2. Sit-Supine independent 3. Sit-Stand independent 4. Stand-Sit independent 5. Bed-Chair independent 6. Chair-Bed independent 7. Independent gait on level surface with use of least restrictive device for at least 300 feet without report of pain nor dyspnea 8. Independent stair negotiation while holding onto bilateral rails for at least 10 steps without report of pain nor dyspnea 9. Independent with home exercise program 10. Good static and dynamic standing balance/tolerance Plan of Care/Treatment Plan: Patient will highly benefit from skilled physical therapy services including functional mobility training, bed mobility/transfer training, gait and balance training, therapeutic exercises, therapeutic activity, caregiver/staff/family education and training 1x/day, 7 days/week x 1 week. Plan of care has been reviewed with the BROOM STITCHER providing the service under Physical Therapy direction. Initiate Physical Therapy intervention for strengthening, bed mobility, transfers, gait, stairs, balance training, use of assistive device. DISCHARGE RECOMMENDATIONS: Home when medically cleared by orthopedic surgeon. Recommend outpatient PT services in order to optimize functional mobility outcomes and facilitate return to independent community ambulation without an assistive device. TREATMENT CODE/TIME: 70396 x 29 minutes for 2 units (8:57-09:26)
--- NOTE | 2023-08-21 09:30 | RT.EKG_ITS ---
APPROVED REPORT Exam: Resting ECG Reason for Exam: presyncope, bradycardia Patient Location: I HR:52 bpm ECG Measurements Heart Rate 52 AXIS AL 156 P 12 QRSd 97 QRS -24 QT 456 T 3 QTc 424 Conclusion Sinus rhythm...normal P axis, V-rate 50- 99 Abnormal R-wave progression, early transition...QRS area>0 in V2
--- NOTE | 2023-08-21 09:54 | NUR.NOTE ---
called into room by PT at 0915. pt reported to PT that she feels like she is going to pass out. Pt appears pale and diaphoretic, sitting in wheelchair. BP reading 40's/30's on monitor, unable to palpate manual BP. HR in the 50's. MD notified. Pt moved to bed, legs elevated, cold compress applied. BP 94/61. Pt reports feeling better. EKG ordered, BP rechecked at 103/59 at 0940. Pt continues to feel improvement. Will continue to monitor.
[2023-08-21] MEDS: Lactated Ringers 1,000 ML 1000 ML IV (10:14)
[2023-08-21 10:55] LABS: HGB 12.1 g/dL (11.2-15.7); MCH 29.1 pg (27.0-33.0); MCHC 32.7 % (32.0-36.0); MCV 89 fL (80-95); MPV 9.3 fL (8.0-11.0); Platelet Count 263 10^3/uL (130-400); RBC 4.16 10^6/uL (3.93-5.22); RDW 13.3 % (11.7-14.6); RDW-SD 43.8 fL; WBC 14.24 10^3/uL (4.4-10.8)
[2023-08-21 11:16] LABS: ALT 22 U/L (14-59); AST 16 U/L (15-37); Albumin 3.2 g/dL (3.4-5.0); Alkaline Phosphatase 53 U/L (46-116); Anion Gap 6.6 mmol/L (3-11); BUN 17 mg/dL (7-18); Bilirubin, Total 0.5 mg/dL (0.2-1.0); CO2 29.4 mmol/L (21.0-32.0); CREATININE 0.7 mg/dL (0.55-1.02); Calcium 8.7 mg/dL (8.5-10.1); Chloride 106 mmol/L (98-107); Estimated GFR 96.52 (mL/min/1.73m2); Glucose 139 mg/dL (74-106); Potassium 4.2 mmol/L (3.5-5.1); Sodium 142 mmol/L (136-145); Total Protein 6.6 g/dL (6.4-8.2)
[2023-08-21 11:20] LABS: Troponin I < 50 ng/L (< or =60)
--- NOTE | 2023-08-21 11:30 | DI.CT_ITS ---
Exam(s) CT CHEST PE CTA EXAM: CT CHEST PE CTA CLINICAL HISTORY: hypotension, hypoxemia. TECHNIQUE: Imaging Protocol: Axial CT angiography was performed with multi-slice acquisition and mu lti-planar and/or 3D reconstructions. CONTRAST MATERIAL: Intravenous: Omnipaque 350 contrast volume:100 mL COMPARISON: No exams were available for comparison FINDINGS: Tracheobronchial tree: Patent where visualized. Pulmonary parenchyma: No consolidation or dominant measurable mass. No architectural distortion. Pulmonary Arteries: No evidence of filling defect to suggest pulmonary emboli. Mediastinum and Bonnie: No dominant adenopathy or fluid collection. The esophagus is unremarkable. Visualized thyroid gland: Unremarkable. Pleura: No effusion or pneumothorax. Heart: The heart is not dilated. Coronary artery calcifications are present. No pericardial effusion . Aorta: Thoracic aorta non-dilated. No evidence of dissection. Atherosclerotic calcifications are pres ent. Upper abdomen: Unremarkable. Soft tissues: Unremarkable. Bones: Within normal limits for the patient's age. IMPRESSION: 1. No evidence of pulmonary embolism, thoracic aortic dissection or aneurysm. 2. No pulmonary infiltrates. RADIATION DOSE DELIVERED: Total DLP DATA REPOSITORY: All CT scans at this facility are submitted to the National Radiology Data Registry (NRDR) Dose Index Registry (DIR) with the [employer] (ACR). RADIATION OPTIMIZATION: All CT scans at this facility use at least one of these dose optimization te chniques: automated exposure control; mA and/or kV adjustment per patient size (includes targeted exa ms where dose is matched to clinical indication); or iterative reconstruction.
[2023-08-21 11:45] LABS: D-Dimer 1403 ng/mlFEU (<500)
--- NOTE | 2023-08-21 12:02 | W.POCUS ---
Pocus Exam Limited Vascular Exam DATE OF EXAM: 08/21/23 TIME OF EXAM: 10:58 PROVIDER THAT PERFORMED THE STUDY: Dexter Akhtar IS THIS A REPEAT EXAM DURING THIS ENCOUNTER: No Vascular Exam: Left lower extremity REASON FOR EXAM: Concern for DVT left lower extremity VISUALIZED STRUCTURES: Left common femoral vein, Left popliteal vein, Left superficial femoral vein and Left greater saphenous vein PERTINENT FINDINGS/IMPRESSION: Compressible veins left leg Exam Complete and Right lower extremity REASON FOR EXAM: Concern for DVT right lower extremity VISUALIZED STRUCTURES: Right common femoral vein, Right superficial femoral vein and Right greater saphenous vein PERTINENT FINDINGS/IMPRESSION: Compressible veins right leg Exam Complete INCIDENTAL FINDINGS: Unable to evaluate right popliteal vein. No evidence for DVT was seen in either leg
--- NOTE | 2023-08-21 12:31 | W.POCUS ---
Pocus Exam Limited Cardiac Exam DATE OF EXAM: 08/21/23 TIME OF EXAM: 10:25 PROVIDER THAT PERFORMED THE STUDY: Dexter Akhtar IS THIS A REPEAT EXAM DURING THIS ENCOUNTER: no REASON FOR EXAM: Hypotension and Hypoxia VISUALIZED STRUCTURES: four chambers, aortic valve, mitral valve, Interventricular septum and IVC VIEW OBTAINED: Apical 4-Chamber, Parasternal long-axis, Parasternal short-axis and Subxiphoid PERTINENT FINDINGS/IMPRESSION: Plethoric IVC; no IVC inspiratory collapsability, No LV dysfunction, No pericardial effusion and No RV dysfunction Exam complete
--- NOTE | 2023-08-21 12:33 | W.MEDCONSULT ---
Date of service: 08/21/23 Time of Service: 10:18 Assessment and Plan Assessment and plan (1) Orthostatic hypotension: Status: Acute Assessment and plan: Possible vasovagal episode however given recent right TKA and some mild hypoxemia I think a PE needs to be ruled out. Recommend proceeding with a CTA of the chest per PE protocol. Agree with IV fluids which has now been completed. Patient regularly takes lisinopril for hypertension but this was not given this morning. (2) Hypoxemia: Status: Acute Assessment and plan: Possible secondary to atelectasis but given the setting of orthostatic hypotension and recent TKA PE needs to be ruled out. Her lungs are clear I do not appreciate any symptoms or signs of CHF or pneumonia. I did not perform a POCUS exam of her lungs since working to get a CTA of her chest anyways. History of Present Illness History of Present Illness Chief Complaint: orthostatic hypotension, hypoxemia Narrative: 63-year-old female who underwent right TKA yesterday. She was held overnight because of some mild postoperative hypoxemia. This morning when getting up to the physical therapy she became very dizzy and had a near syncopal event with her systolic pressure dropping into the 40s. Dr. Mendes who asked me to evaluate her. He did stat labs stat EKG and ordered a liter of LR to be given. Now the patient is back to bed she is feeling better denies any chest pain or pressure or dyspnea. Her O2 saturation dropped down into the high 80s and has come back up with supplemental oxygen.Systolic pressure after they got her back to bed came up into the 120s after her fluid bolus. EKG shows no acute ischemic changes. Review of Systems All systems reviewed & are unremarkable except as noted in HPI and below Cardiovascular Cardiovascular: Denies chest pain, Reports lightheadedness, Denies palpitations and Denies dyspnea Respiratory Respiratory: Denies dyspnea Endocrine Endocrine: Denies palpitations PFSH All Active Problems (Updated 08/21/23 @ 12:43 by Dexter Akhtar MD) Hypoxemia (Acute) Orthostatic hypotension (Acute) Osteoarthritis of right knee (Acute) Steroid injection: 04/28/2023 Medical History Melanoma HTN (hypertension) Surgical History Hemorrhagic prepatellar bursitis of right knee Status postevacuation of hematoma DOS: 09/28/2021 Hx of melanoma excision Social History Smoking/Tobacco Use Status: Never Smoking risk assessment performed?: Yes Alcohol Intake: never Drug use: Never Substance use type: does not use Housing: house Current gender identity: female Do you feel safe at home: Yes Do you feel safe in your relationship?: Yes Exam Narrative Exam Narrative: Pleasant obese female lying in bed in no acute distress fully conversant without any dyspnea. Neck veins are flat normal carotid pulses Lungs are clear to auscultation anteriorly as well as posteriorly. Heart is regular no appreciable murmur or rub or gallop Abdomen obese soft and nontender Lower extremities the right leg is edematous however she is postop 1 day from a right TKA. Pedal pulses are intact. Left leg without pitting edema. She has a Mepilex over her left anterior tibia where she had a recent removal of a melanoma. Pedal pulses are intact in the left leg as well. Results Last Vital Signs Temp 36.3 C L 08/21/23 11:30 Pulse 80 08/21/23 11:30 Resp 18 08/21/23 11:30 BP 128/85 08/21/23 11:30 Pulse Ox 95 08/21/23 11:30 Labs 08/21/23 10:45 08/21/23 10:45 Labs: Laboratory Results - last 24 hr 08/21/23 10:45 WBC 14.24 H RBC 4.16 Hgb 12.1 Hct 37.0 MCV 89 MCH 29.1 MCHC 32.7 RDW 13.3 Plt Count 263 MPV 9.3 D-Dimer 1403 H Sodium 142 Potassium 4.2 Chloride 106 Carbon Dioxide 29.4 Anion Gap 6.6 BUN 17 Creatinine 0.7 Est GFR (CKD-EPI 2020) 96.52 Glucose 139 H Calcium 8.7 Total Bilirubin 0.5 AST 16 ALT 22 Alkaline Phosphatase 53 Troponin I < 50 Total Protein 6.6 Albumin 3.2 L Imaging Imaging Studies: Bedside POCUS study was obtained including limited echocardiogram as well as venous compression study of both lower extremities. See my separate report. Echo showed normal LV and RV function but shows a plethoric IVC with less than 50% inspiratory collapsibility. No clot in transit was seen in the RV. RV appears to be upper limit of normal in size but there is no evidence of acute cor pulmonale. LV showed normal wall motion. The right common femoral greater saphenous and superficial femoral veins were collapsible. Right popliteal vein could not be interrogated. Veins on the left side were collapsible from the left common femoral and left greater saphenous and left superficial femoral as well as popliteal.
[2023-08-21] MEDS: Omnipaque 350 MG/ML 100 ML BTL IJ (12:36)
[2023-08-21] MEDS: Normal Saline - Diluent 50 ML VIAL IJ (12:37)
[2023-08-21] MEDS: Acetaminophen 500 MG TAB 1000 MG PO (12:55)
--- NOTE | 2023-08-21 13:57 | PT.INTREAT ---
PT Notes Visit Reasons: R TKR Date: 08/21/2023 Precautions: WBAT on the right LE with AD. Subjective: Pt in recliner when approached for therapy this faternoon, pt agreed to participating with therapy Reported 5/10 pain on the right knee at rest and with movement. a little headache Objective: General Observation: Mepilex Ag oer surgical incision. TEDS to left leg and foot. Pain: BP before the short walk= 119/77 mmHg, O2 Sat 94% on RA, HR 82 bpm Bed Mobility/Transfers: Minimal cueing provided for use of B hands as needed for support, movement sequence, AD management, and posture to reduce fall risk and minimize pain report Sit to stand SBA Stand to sit standby assist Bed to chair standby assist Gait Training [id number]: Direct one-on-one instruction and skilled instruction in: Employing an assistive device Modified weight-bearing status Movement sequencing Turning and movement with proper form Provided verbal cues for equipment management and technique Provided instruction in gait pattern Patient education regarding pacing and breathing techniques to maximize activity tolerance? GAIT? Assistive Device: FWW ? Weight bearing: WBAT Assist: SBA WC follow ? Distance:?60' x2 seated rest break in between distance? Deviation: ?antalgic gait ? ASSESSMENT:?Pt able to stay standing doing eyes closed, NBOS, head turns/ weight shifting without getting dizzy or nauseous, pt tolerated gait didtance without increased knee pain. PLAN: Continue with balance training, global strengthening and general conditioning for improved safety, mobility and activity tolerance until pt is ready for DC. TREATMENT CODE/TIME: 16465h9 30mins (1:30-2:00pm)
== END 2023-08-21 17:43 | disposition home or self-care (01) ==
LOC: MS 22:09
PROVIDERS: Internal Medicine; Admitting Provider Student in an Organized Health Care Education/Training Program; PCP Nurse Practitioner Primary Care; Visit Provider Student in an Organized Health Care Education/Training Program
PROC: (CPT 27447; principal; 2023-08-20 10:45)
DX: M17.11 Unilateral primary osteoarthritis, right knee (principal); R09.02 Hypoxemia; I95.1 Orthostatic hypotension; R79.1 Abnormal coagulation profile; I10 Essential (primary) hypertension; Z79.899 Other long term (current) drug therapy; Z85.820 Personal history of malignant melanoma of skin
CPT/HCPCS: 27447; 00123; 36415; 71275; 76942; 80053; 85027; 93308; 93971; 96365; 96366; 97162; 97530; 84484; 85379; 93005; 93010; C1776; G0378; J0665; J0690; J1100; J2001; J2250; J2371; J2401; J2405; J2704; J3490; J8540

== ENCOUNTER 2023-09-04 14:26 | Outpatient (CLI) | payer MEDICAID, SELFPAY ==
--- NOTE | 2023-09-04 09:30 | DI.RAD_ITS ---
Exam(s) XR STANDING ALIGNMENT XR KNEE RT 1V EXAM: XR STANDING ALIGNMENT and XR knee RT 1 V CLINICAL HISTORY: 1ST POST OP R TKA. TECHNIQUE: 2D digital imaging was performed. Five images were obtained. COMPARISON: CR XR STANDING ALIGNMENT from 06/16/2023 CR XR KNEE RT 1V from 06/16/2023 FINDINGS: BONES: The hips are well maintained. Moderate degenerative changes are seen in the left knee charact erized by joint space narrowing and osteophytes. Findings are most marked in the medial femoral tibi al joint. There is a right total knee replacement. The orthopedic hardware is in good position. No suspicious lucencies are seen in or about the orthopedic hardware. There is an enthesophyte at the superior patella. The ankles are well maintained.There is no significant leg length discrepancy. SOFT TISSUE: Normal. IMPRESSION: 1. Moderate degenerative changes in the left knee. 2. Right total knee replacement. DATA REPOSITORY: RADIATION DOSE DELIVERED:
== END 2023-09-04 14:27 | disposition home or self-care (01) ==
LOC: DIORS 14:27
PROVIDERS: PCP Nurse Practitioner Primary Care; Visit Provider Physician Assistant
DX: Z96.651 Presence of right artificial knee joint (principal); Z47.1 Aftercare following joint replacement surgery
CPT/HCPCS: 73560; 77073

== ENCOUNTER 2024-09-09 10:03 | Outpatient (CLI) | payer MEDICAID, SELFPAY ==
--- NOTE | 2024-09-09 08:30 | DI.RAD_ITS ---
Exam(s) XR KNEE RT 2V AP,LAT EXAM: XR KNEE RT 2V AP,LAT CLINICAL HISTORY: ANNUAL F/U R TKA. TECHNIQUE: 2D digital imaging was performed. COMPARISON: CR XR KNEE RT 1V from 09/04/2023 FINDINGS: Two views Stable position alignment of the components of the knee prosthesis. No fracture or loosening evident . IMPRESSION: Stable satisfactory appearance DATA REPOSITORY: RADIATION DOSE DELIVERED:
== END 2024-09-09 10:04 | disposition home or self-care (01) ==
LOC: DIORS 10:04
PROVIDERS: PCP Internal Medicine; Visit Provider Student in an Organized Health Care Education/Training Program
DX: Z96.651 Presence of right artificial knee joint (principal)
CPT/HCPCS: 73560